=== PATIENT | male | born 1965 | race Caucasian/White ===

== ENCOUNTER 2019-03-31 09:25 | Inpatient (IN) | payer OTHER ==
[2019-03-31 10:35] VITALS: BMI 24.0
--- NOTE | 2019-03-31 12:33 | HP ---
CIWA Score Nausea/Vomitin Muscle Tremors: 3 Anxiety: 2 Agitation: 3 Paroxysmal Sweats: 1-Minimal Palms Moist Orientation: 0-Oriented Tacttile Disturbances: 1-Very Mild Itch/Numbness Auditory Disturbances: 0-None Visual Disturbances: 2-Mild Sensitivity Headache: 2-Mild CIWA-Ar Total Score: 16 - Admission Criteria [facility] Guidelines: Admission for Medically Managed Detox: Requires at least one of the followin. CIWA greater than 12 2. Seizures within the past 24 hours 3. Delirium tremens within the past 24 hours 4. Hallucinations within the past 24 hours 5. Acute intervention needed for co occurring medical disorder 6. Acute intervention needed for co occurring psychiatric disorder 7. Severe withdrawal that cannot be handled at a lower level of care (continued vomiting, continued diarrhea, abnormal vital signs) requiring intravenous medication and/or fluids 8. Admission ROS S - HPI Chief Complaint: i need help to stop drinking alcohol Allergies/Adverse Reactions: Allergies Allergy/AdvReac Type Severity Reaction Status Date / Time Fish Containing Products Allergy Severe Hives Verified 03/31/19 10:19 Penicillins Allergy Severe Hives Verified 03/31/19 10:19 History of Present Illness: thi s53 years old male with alcohol dependence seeking detox,withdrawal symptom, seen in [place] last night,mmtp 70 mgs/day,last medicated monday03/29/19. stated the bottles to take home on mon03/30/19,monday03/31/19 and 04/01 denied seizure,denied syncope nicotine dependence 1 pack/day,would like to have nicotine patch and gum weight loss longest sobriety 10 years from 1989 to 1999 depression ,insomnia plan to go back to methadone program after detox Exam Limitations: No Limitations - Ebola screening Have you traveled outside of the country in the last 21 days: No (N) Have you had contact with anyone from an Ebola affected area: No Do you have a fever: No - Review of Systems Constitutional: Loss of Appetite, Malaise, Night Sweats, Changes in sleep, Weakness, Unintentional Wgt. Loss EENT: reports: Nose Congestion Respiratory: reports: No Symptoms reported Cardiac: reports: No Symptoms Reported GI: reports: Nausea, Poor Appetite, Abdominal cramping : reports: No Symptoms Reported Musculoskeletal: reports: Back Pain, Muscle Pain Integumentary: reports: Dryness Neuro: reports: Headache, Tremors Endocrine: reports: No Symptoms Reported Hematology: reports: No Symptoms Reported Psychiatric: reports: No Sypmtoms Reported, Judgement Intact, Mood/Affect Appropiate, Orientated x3, Anxious, Depressed, other (insomnia) Other Systems: Reviewed and Negative Patient History - Patient Medical History Hx Anemia: No Hx Asthma: No Hx Chronic Obstructive Pulmonary Disease (COPD): No Hx Cardiac Disorders: No Hx Hypertension: No Hx Hypercholesterolemia: No HX Cerebrovascular Accident: No Hx Seizures: No Hx Diabetes: No Hx Gastrointestinal Disorders: No Hx Genitourinary Disorders: No Hx Sexually Transmitted Disorders: Yes (Treated for Syphilis 15 yrs ago) Hx Renal Disease (ESRD): No Hx Thyroid Disease: No Hx Human Immunodeficiency Virus (HIV): No (NEGATIVE HX last 05/17) Hx Hepatitis C: Yes (treated ) Hx Depression: Yes Hx Suicide Attempt: Yes (7Yrs ago by cutting wrist) Hx Bipolar Disorder: Yes Hx Schizophrenia: No Other Medical History: no suicidal,no homicidal - Patient Surgical History Past Surgical History: Yes Hx Neurologic Surgery: No Hx Cataract Extraction: No Hx Cardiac Surgery: No Hx Lung Surgery: No Hx Breast Surgery: No Hx Breast Biopsy: No Hx Abdominal Surgery: No Hx Appendectomy: No Hx Cholecystectomy: No Hx Genitourinary Surgery: No Hx Section: No Hx Orthopedic Surgery: Yes (SX LEFT SHOULDER DUE TO FALL IN 2003) Anesthesia Reaction: No - PPD History Previous Implant?: Yes Documented Results: Negative w/o proof Implanted On Prior [facility] Admission?: Yes Date: 05/07/15 Results: 0 mm PPD to be Administered?: No - Smoking Cessation Smoking history: Current every day smoker Have you smoked in the past 12 months: Yes Aproximately how many cigarettes per day: 10 Hx Chewing Tobacco Use: No Initiated information on smoking cessation: Yes 'Breaking Loose' booklet given: 03/31/19 - Substance & Tx. History Hx Alcohol Use: Yes Hx Substance Use: Yes Substance Use Type: Alcohol, Heroin Hx Substance Use Treatment: Yes ([facility] 05/05/15 to 05/12/15) - Substances abused Alcohol Substance route: Oral Frequency: Daily Amount used: 5 BOTTLES OF BEER, 1 QUART OF VODKA Age of first use: 12 Date of last use: 03/29/19 Heroin Substance route: Inhalation Frequency: Daily Amount used: 5-6 BAGS Age of first use: 15 Date of last use: 03/30/19 Family Disease History - Family Disease History Family Disease History: Diabetes: Father (ALCOHOL/DRUG ADDICTION), Respiratory: Mother (COPD) Admission Physical Exam [facility] - Vital Signs Vital Signs: Vital Signs - 24 hr 03/31/19 10:29 Temperature 96.9 F L Pulse Rate 50 L Respiratory 20 Rate Blood Pressure 134/81 - Physical General Appearance: Yes: Moderate Distress, Tremorous, Irritable, Sweating, Anxious HEENTM: Yes: Normal ENT Inspection, B[place], Pharynx Normal Respiratory: Yes: Lungs Clear, Normal Breath Sounds, No Respiratory Distress Neck: Yes: Within Normal Limits, No masses,lesions,Nodules, Supple Breast: Yes: Within Normal Limits Cardiology: Yes: Within Normal Limits, Regular Rhythm, S1, S2, Tachycardia Abdominal: Yes: Within Normal Limits, Normal Bowel Sounds, Non Tender, Flat, Soft Genitourinary: Yes: Within Normal Limits Back: Yes: Muscle Spasm Extremities: Yes: Within Normal Limits, Normal Range of Motion, Tremors Neurological: Yes: 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 II-XII NML intact, Fully Oriented, Alert, Motor Strength 5/5 Integumentary: Yes: Dry, Other (varicose veins both legs) Lymphatic: Yes: Within Normal Limits - Diagnostic (1) Alcohol dependence with uncomplicated withdrawal Current Visit: Yes Status: Acute (2) Heroin abuse Current Visit: Yes Status: Acute (3) Methadone maintenance therapy patient Current Visit: Yes Status: Acute (4) Dehydration Current Visit: Yes Status: Acute (5) Nicotine dependence Current Visit: Yes Status: Chronic (6) Bipolar disorder Current Visit: Yes Status: Acute (7) Varicose vein of leg Current Visit: Yes Status: Acute Cleared for Admission [facility] - Detox or Rehab [facility] Level of Care: Medically Managed Detox Regimen/Protocol: Librium Inpatient Rehab Admission - Rehab Decision to Admit Inpatient rehab admission?: No
[2019-03-31] MEDS ORDERED: NICOTINE POLACRILEX 2 MG GUM BUC PRN (12:47)
[2019-03-31] MEDS ORDERED: MENTHOL/PHENOL 1 EACH UD MM PRN (12:47)
[2019-03-31] MEDS ORDERED: ACETAMINOPHEN 325 MG TABLET (FP) PO PRN ×2 (12:47)
[2019-03-31] MEDS ORDERED: chlordiazePOXIDE HCL 25 MG CAPSULE PO PRN (12:47)
[2019-03-31] MEDS ORDERED: MAG HYDROX/AL HYDROX/SIMETH 30 ML UNIT-DOSE CUP PO PRN (12:47)
[2019-03-31] MEDS ORDERED: MAGNESIUM HYDROX 2400MG/30ML ORAL SUSPENSION 30 ML CUP PO PRN (12:47)
[2019-03-31] MEDS ORDERED: METHOCARBAMOL 500 MG TABLET PO PRN (12:47)
[2019-03-31] MEDS ORDERED: MAGNESIUM CITRATE 300 ML BOTTLE PO PRN (12:47)
[2019-03-31] MEDS ORDERED: BISMUTH SUBSALICYLATE 524 MG/30 ML UD PO PRN (12:47)
[2019-03-31] MEDS ORDERED: IBUPROFEN 400 MG TABLET (FP) PO PRN (12:47)
[2019-03-31] MEDS ORDERED: hydrOXYzine PAMOATE 25 MG CAPSULE (FP) PO PRN (12:47)
[2019-03-31] MEDS ORDERED: METHADONE HCL 10 MG TABLET PO ONE (13:45)
[2019-03-31] MEDS: NICOTINE 21 MG/24 HOURS TOPICAL PATCH TD SCH (14:06)
[2019-03-31] MEDS: chlordiazePOXIDE HCL 25 MG CAPSULE PO SCH ×2 (17:40→22:47)
[2019-03-31] MEDS: THIAMINE HCL 100 MG TABLET (FP) PO SCH (22:47)
[2019-04-01] MEDS ORDERED: METHADONE HCL 10 MG TABLET PO ONE (06:00)
[2019-04-01] MEDS: chlordiazePOXIDE HCL 25 MG CAPSULE PO SCH ×4 (06:41→21:59)
[2019-04-01 09:51] LABS: HEMATOCRIT 43.7 % (35.4-49); HEMOGLOBIN 15.1 GM/dL (11.7-16.9); MCH 31.1 pg (25.7-33.7); MCHC 34.5 g/dl (32.0-35.9); MEAN CELL VOLUME 90.4 fl (80-96); MEAN PLT VOLUME 8.3 fl (7.5-11.1); PLATELET COUNT 266 K/MM3 (134-434); RBC 4.83 M/mm3 (4.00-5.60); RDW 13.2 % (11.9-15.9); WHITE BLOOD COUNT 19.3 K/mm3 (4.0-10.0)
[2019-04-01 09:54] LABS: ALBUMIN 3.7 g/dl (3.4-5.0); BILIRUBIN,TOTAL 0.8 mg/dL (0.2-1); BLOOD UREA NITROGEN 18.1 mg/dL (7-18); CALCIUM 9.1 mg/dL (8.5-10.1); CREATININE 0.9 mg/dL (0.55-1.3); POTASSIUM 3.8 mmol/L (3.5-5.1); TOT PROT 7.3 g/dl (6.4-8.2)
[2019-04-01] MEDS: PRENATAL VITAMINS W/ FOLIC ACID TABLET (FP) PO SCH (10:18)
[2019-04-01] MEDS: NICOTINE 21 MG/24 HOURS TOPICAL PATCH TD SCH (10:18)
[2019-04-01 10:20] LABS: SICKLE CELL SCREEN NEGATIVE (NEGATIVE)
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
--- NOTE | 2019-04-01 10:35 | PN ---
S CIWA - CIWA Score Nausea/Vomitin-Mild Nausea/No Vomiting Muscle Tremors: 4-Moderate,w/Arms Extend Anxiety: 3 Agitation: 3 Paroxysmal Sweats: 2 Orientation: 0-Oriented Tacttile Disturbances: 1-Very Mild Itch/Numbness Auditory Disturbances: 0-None Visual Disturbances: 0-None Headache: 1-Very Mild CIWA-Ar Total Score: 15 S Progress Note (SOAP) Subjective: 53 years old male 1st patient [facility] admission since 2014 was admitted on 03/31/19 for alcohol withdrawal sx management doing well with librum detox regimen taking methadone 70 mg without prove of bottle verification nor phone call available patient received 20 mg of methadone today exhibiting tremor and body aches and muscle spasms Objective: 04/01/19 10:37 Vital Signs Temperature 98.5 F 04/01/19 09:04 Pulse Rate 66 04/01/19 09:04 Respiratory Rate 18 04/01/19 09:04 Blood Pressure 98/57 L 04/01/19 09:04 O2 Sat by Pulse Oximetry (%) Laboratory Last Values WBC 19.3 K/mm3 (4.0-10.0) H 04/01/19 07:30 RBC 4.83 M/mm3 (4.00-5.60) 04/01/19 07:30 Hgb 15.1 GM/dL (11.7-16.9) 04/01/19 07:30 Hct 43.7 % (35.4-49) 04/01/19 07:30 MCV 90.4 fl (80-96) 04/01/19 07:30 MCH 31.1 pg (25.7-33.7) 04/01/19 07:30 MCHC 34.5 g/dl (32.0-35.9) 04/01/19 07:30 RDW 13.2 % (11.9-15.9) 04/01/19 07:30 Plt Count 266 K/MM3 (134-434) 04/01/19 07:30 MPV 8.3 fl (7.5-11.1) D 04/01/19 07:30 Sickle Cell Screen Negative (NEGATIVE) 04/01/19 07:30 Sodium 141 mmol/L (136-145) 04/01/19 07:30 Potassium 3.8 mmol/L (3.5-5.1) 04/01/19 07:30 Chloride 104 mmol/L (98-107) 04/01/19 07:30 Carbon Dioxide 30 mmol/L (21-32) 04/01/19 07:30 Anion Gap 8 MMOL/L (8-16) 04/01/19 07:30 BUN 18.1 mg/dL (7-18) H 04/01/19 07:30 Creatinine 0.9 mg/dL (0.55-1.3) 04/01/19 07:30 Est GFR (CKD-EPI)AfAm 112.62 04/01/19 07:30 Est GFR (CKD-EPI)NonAf 97.17 04/01/19 07:30 Random Glucose 90 mg/dL (74-106) 04/01/19 07:30 Calcium 9.1 mg/dL (8.5-10.1) 04/01/19 07:30 Total Bilirubin 0.8 mg/dL (0.2-1) 04/01/19 07:30 AST 26 U/L (15-37) 04/01/19 07:30 ALT 21 U/L (13-61) 04/01/19 07:30 Alkaline Phosphatase 130 U/L (45-117) H 04/01/19 07:30 Total Protein 7.3 g/dl (6.4-8.2) 04/01/19 07:30 Albumin 3.7 g/dl (3.4-5.0) 04/01/19 07:30 lab noted 04/01/19 10:38 encourage oral fluid repeat cbc 04/01/19 10:40 Assessment: 04/01/19 10:38 alcohol withdrawal sx 04/01/19 10:39 no coughing no trouble of urination no diarrhea Plan: continue librium detox regimen
--- NOTE | 2019-04-01 13:40 | PN ---
S Progress Note Note: unwitnessed fall observed patient lying on bed alert speech clearly reporting that feeling weak fell on the floor when up from a chair, left based of occipital bump to the chair occipital scalp intact no redness no swell none tender neck full range of motion c/o headache encourage tylenal or motrin for pain denies nausea no vomiting denies dizziness but weakness of general body observed patient walk out from his room to the day room steady gait encourage oral fluid continue monitoring point of occipital "bumping to chair"
[2019-04-01] MEDS: THIAMINE HCL 100 MG TABLET (FP) PO SCH (21:59)
[2019-04-01] MEDS: MELATONIN 5 MG TABLETS PO PRN (22:00)
[2019-04-02] MEDS: chlordiazePOXIDE HCL 25 MG CAPSULE PO SCH ×4 (06:03→22:00)
[2019-04-02] MEDS ORDERED: METHADONE HCL 10 MG TABLET PO SCH (07:30)
[2019-04-02] MEDS ORDERED: METHADONE HCL 40 MG DISPERSABLE TABLET ONE (07:38)
[2019-04-02] MEDS ORDERED: METHADONE HCL 10 MG TABLET ONE (07:38)
[2019-04-02] MEDS: METHADONE 40 MG, METHADONE 20 MG PO SCH (07:44)
[2019-04-02] MEDS: NICOTINE 21 MG/24 HOURS TOPICAL PATCH TD SCH (09:59)
[2019-04-02] MEDS: PRENATAL VITAMINS W/ FOLIC ACID TABLET (FP) PO SCH (09:59)
--- NOTE | 2019-04-02 11:32 | PN ---
[facility] CIWA - CIWA Score Nausea/Vomitin-No Nausea/No Vomiting Muscle Tremors: 2 Anxiety: 3 Agitation: 3 Paroxysmal Sweats: 1-Minimal Palms Moist Orientation: 0-Oriented Tacttile Disturbances: 1-Very Mild Itch/Numbness Auditory Disturbances: 0-None Visual Disturbances: 0-None Headache: 0-None Present CIWA-Ar Total Score: 10 S Progress Note (SOAP) Subjective: 53 years old male 1st patient [facility] admission since 2014 was admitted on 03/31/19 for acute alcohol withdrawal sx management doing well with libirum detox regmen begin methadone 60 mg po today tolerate well patient requests housing application and residential upon discharged from detox Objective: 04/02/19 11:34 Vital Signs Temperature 97.9 F 04/02/19 09:02 Pulse Rate 57 L 04/02/19 09:02 Respiratory Rate 18 04/02/19 09:02 Blood Pressure 106/69 04/02/19 09:02 O2 Sat by Pulse Oximetry (%) Laboratory Last Values WBC 19.3 K/mm3 (4.0-10.0) H 04/01/19 07:30 RBC 4.83 M/mm3 (4.00-5.60) 04/01/19 07:30 Hgb 15.1 GM/dL (11.7-16.9) 04/01/19 07:30 Hct 43.7 % (35.4-49) 04/01/19 07:30 MCV 90.4 fl (80-96) 04/01/19 07:30 MCH 31.1 pg (25.7-33.7) 04/01/19 07:30 MCHC 34.5 g/dl (32.0-35.9) 04/01/19 07:30 RDW 13.2 % (11.9-15.9) 04/01/19 07:30 Plt Count 266 K/MM3 (134-434) 04/01/19 07:30 MPV 8.3 fl (7.5-11.1) D 04/01/19 07:30 Sickle Cell Screen Negative (NEGATIVE) 04/01/19 07:30 Sodium 141 mmol/L (136-145) 04/01/19 07:30 Potassium 3.8 mmol/L (3.5-5.1) 04/01/19 07:30 Chloride 104 mmol/L (98-107) 04/01/19 07:30 Carbon Dioxide 30 mmol/L (21-32) 04/01/19 07:30 Anion Gap 8 MMOL/L (8-16) 04/01/19 07:30 BUN 18.1 mg/dL (7-18) H 04/01/19 07:30 Creatinine 0.9 mg/dL (0.55-1.3) 04/01/19 07:30 Est GFR (CKD-EPI)AfAm 112.62 04/01/19 07:30 Est GFR (CKD-EPI)NonAf 97.17 04/01/19 07:30 Random Glucose 90 mg/dL (74-106) 04/01/19 07:30 Calcium 9.1 mg/dL (8.5-10.1) 04/01/19 07:30 Total Bilirubin 0.8 mg/dL (0.2-1) 04/01/19 07:30 AST 26 U/L (15-37) 04/01/19 07:30 ALT 21 U/L (13-61) 04/01/19 07:30 Alkaline Phosphatase 130 U/L (45-117) H 04/01/19 07:30 Total Protein 7.3 g/dl (6.4-8.2) 04/01/19 07:30 Albumin 3.7 g/dl (3.4-5.0) 04/01/19 07:30 RPR Titer Nonreactive (NONREACTIVE) 04/01/19 07:30 04/02/19 11:35 lab noted asymptomatic wbc elevation repeat cbc 04/03/19 Assessment: 04/02/19 11:35 alcohol withdrawal sx Plan: continue librium detox regimen methadone 60 mg po daily
[2019-04-02] MEDS: THIAMINE HCL 100 MG TABLET (FP) PO SCH (22:00)
[2019-04-02] MEDS: MELATONIN 5 MG TABLETS PO PRN (22:00)
[2019-04-03] MEDS ORDERED: chlordiazePOXIDE HCL 10 MG CAPSULE PO PRN
[2019-04-03] MEDS ORDERED: METHADONE HCL 40 MG DISPERSABLE TABLET ONE (04:41)
[2019-04-03] MEDS ORDERED: METHADONE HCL 10 MG TABLET ONE (04:41)
[2019-04-03] MEDS: chlordiazePOXIDE HCL 10 MG CAPSULE PO SCH ×4 (05:16→22:06)
[2019-04-03] MEDS: METHADONE 40 MG, METHADONE 20 MG PO SCH (05:16)
[2019-04-03] MEDS: PRENATAL VITAMINS W/ FOLIC ACID TABLET (FP) PO SCH (10:06)
[2019-04-03] MEDS: NICOTINE 21 MG/24 HOURS TOPICAL PATCH TD SCH (10:06)
[2019-04-03 12:25] LABS: HEMATOCRIT 36.8 % (35.4-49); HEMOGLOBIN 12.6 GM/dL (11.7-16.9); MCH 31.3 pg (25.7-33.7); MCHC 34.4 g/dl (32.0-35.9); MEAN CELL VOLUME 91.1 fl (80-96); MEAN PLT VOLUME 8.2 fl (7.5-11.1); PLATELET COUNT 210 K/MM3 (134-434); RBC 4.04 M/mm3 (4.00-5.60); RDW 13.3 % (11.9-15.9); WHITE BLOOD COUNT 8.3 K/mm3 (4.0-10.0)
--- NOTE | 2019-04-03 13:58 | PN ---
S CIWA - CIWA Score Nausea/Vomitin-No Nausea/No Vomiting Muscle Tremors: 2 Anxiety: 2 Agitation: 2 Paroxysmal Sweats: No Perspiration Orientation: 0-Oriented Tacttile Disturbances: 0-None Auditory Disturbances: 0-None Visual Disturbances: 0-None Headache: 0-None Present CIWA-Ar Total Score: 6 B[facility] Progress Note (SOAP) Subjective: doing well with libirum detox regimen late entry patient reported fell and bump head on chair refused to ER for head CT later patient withdrawal statement and reported that he fell on sleep and head pump on table today patient is alert oriented x [address] steady gait continue request housing application less irritable better self control Objective: 04/03/19 14:00 Vital Signs Temperature 97.3 F L 04/03/19 13:15 Pulse Rate 52 L 04/03/19 13:15 Respiratory Rate 18 04/03/19 13:15 Blood Pressure 93/57 L 04/03/19 13:15 O2 Sat by Pulse Oximetry (%) Laboratory Last Values WBC 8.3 K/mm3 (4.0-10.0) 04/03/19 08:30 RBC 4.04 M/mm3 (4.00-5.60) 04/03/19 08:30 Hgb 12.6 GM/dL (11.7-16.9) 04/03/19 08:30 Hct 36.8 % (35.4-49) D 04/03/19 08:30 MCV 91.1 fl (80-96) 04/03/19 08:30 MCH 31.3 pg (25.7-33.7) 04/03/19 08:30 MCHC 34.4 g/dl (32.0-35.9) 04/03/19 08:30 RDW 13.3 % (11.9-15.9) 04/03/19 08:30 Plt Count 210 K/MM3 (134-434) D 04/03/19 08:30 MPV 8.2 fl (7.5-11.1) 04/03/19 08:30 Sickle Cell Screen Negative (NEGATIVE) 04/01/19 07:30 Sodium 141 mmol/L (136-145) 04/01/19 07:30 Potassium 3.8 mmol/L (3.5-5.1) 04/01/19 07:30 Chloride 104 mmol/L (98-107) 04/01/19 07:30 Carbon Dioxide 30 mmol/L (21-32) 04/01/19 07:30 Anion Gap 8 MMOL/L (8-16) 04/01/19 07:30 BUN 18.1 mg/dL (7-18) H 04/01/19 07:30 Creatinine 0.9 mg/dL (0.55-1.3) 04/01/19 07:30 Est GFR (CKD-EPI)AfAm 112.62 04/01/19 07:30 Est GFR (CKD-EPI)NonAf 97.17 04/01/19 07:30 Random Glucose 90 mg/dL (74-106) 04/01/19 07:30 Calcium 9.1 mg/dL (8.5-10.1) 04/01/19 07:30 Total Bilirubin 0.8 mg/dL (0.2-1) 04/01/19 07:30 AST 26 U/L (15-37) 04/01/19 07:30 ALT 21 U/L (13-61) 04/01/19 07:30 Alkaline Phosphatase 130 U/L (45-117) H 04/01/19 07:30 Total Protein 7.3 g/dl (6.4-8.2) 04/01/19 07:30 Albumin 3.7 g/dl (3.4-5.0) 04/01/19 07:30 RPR Titer Nonreactive (NONREACTIVE) 04/01/19 07:30 lab noted Assessment: 04/03/19 14:00 alcohol withdrawal sx Plan: continue librium detox regimen
[2019-04-03] MEDS: MELATONIN 5 MG TABLETS PO PRN (22:06)
[2019-04-03] MEDS: THIAMINE HCL 100 MG TABLET (FP) PO SCH (22:06)
[2019-04-04] MEDS ORDERED: METHADONE HCL 10 MG TABLET ONE (03:53)
[2019-04-04] MEDS ORDERED: METHADONE HCL 40 MG DISPERSABLE TABLET ONE (03:53)
[2019-04-04] MEDS: METHADONE 40 MG, METHADONE 20 MG PO SCH (05:41)
[2019-04-04] MEDS: chlordiazePOXIDE HCL 10 MG CAPSULE PO SCH ×2 (05:41→17:05)
[2019-04-04] MEDS: PRENATAL VITAMINS W/ FOLIC ACID TABLET (FP) PO SCH (10:10)
[2019-04-04] MEDS: NICOTINE 21 MG/24 HOURS TOPICAL PATCH TD SCH (10:10)
--- NOTE | 2019-04-04 17:10 | PN ---
S CIWA - CIWA Score Nausea/Vomitin-No Nausea/No Vomiting Muscle Tremors: None Anxiety: 2 Agitation: 2 Paroxysmal Sweats: No Perspiration Orientation: 2-Disoriented Date<2 days Tacttile Disturbances: 0-None Auditory Disturbances: 0-None Visual Disturbances: 0-None Headache: 0-None Present CIWA-Ar Total Score: 6 BHS Progress Note (SOAP) Subjective: Body Aches, Anxious. Objective: PATIENT A & O X 2 (UNCERTAIN ABOUT CURRENT DAY / DATE). PATIENT OBSERVED AMBULATING ON UNIT UNASSISTED. IN NO ACUTE DISTRESS. 04/04/19 17:07 Vital Signs Temperature 97.8 F 04/04/19 13:47 Pulse Rate 59 L 04/04/19 13:47 Respiratory Rate 18 04/04/19 13:47 Blood Pressure 96/63 04/04/19 13:47 O2 Sat by Pulse Oximetry (%) Laboratory Tests 04/01/19 04/01/19 04/01/19 07:30 07:30 07:30 WBC 19.3 H RBC 4.83 Hgb 15.1 Hct 43.7 MCV 90.4 MCH 31.1 MCHC 34.5 RDW 13.2 Plt Count 266 MPV 8.3 D Sickle Cell Screen Negative Sodium 141 Potassium 3.8 Chloride 104 Carbon Dioxide 30 Anion Gap 8 BUN 18.1 H Creatinine 0.9 Est GFR (CKD-EPI)AfAm 112.62 Est GFR (CKD-EPI)NonAf 97.17 Random Glucose 90 Calcium 9.1 Total Bilirubin 0.8 AST 26 ALT 21 Alkaline Phosphatase 130 H Total Protein 7.3 Albumin 3.7 RPR Titer Nonreactive TB (QFT) Incubation TB Test (QFT) Nil TB Test (QFT) Mitogen TB Test (QFT) Antigen TB Test (QFT) TB Positive Criteria 04/01/19 04/03/19 07:30 08:30 WBC 8.3 RBC 4.04 Hgb 12.6 Hct 36.8 D MCV 91.1 MCH 31.3 MCHC 34.4 RDW 13.3 Plt Count 210 D MPV 8.2 Sickle Cell Screen Sodium Potassium Chloride Carbon Dioxide Anion Gap BUN Creatinine Est GFR (CKD-EPI)AfAm Est GFR (CKD-EPI)NonAf Random Glucose Calcium Total Bilirubin AST ALT Alkaline Phosphatase Total Protein Albumin RPR Titer TB (QFT) Incubation TB Test (QFT) Nil 0.14 TB Test (QFT) Mitogen 0.15 TB Test (QFT) Antigen 0.14 TB Test (QFT) Indeterminate H TB Positive Criteria LABS NOTED. RESULT OF REPEAT CBC LEVEL NOTED. WBC LEVEL NOTED TO BE WITHIN NORMAL RANGE ON REPEAT CBC ASSESSMENT. 04/04/19 17:09 Assessment: 04/04/19 17:07 WITHDRAWAL SYMPTOMS. ELEVATED ALKALINE PHOSPHATASE LEVEL. 04/04/19 17:07 Plan: CONTINUE DETOX. CXR ORDERED FOR TOMORROW FOR 'INDTERMINATE' QFT /TB RESULT NOTED FROM DETOX ADMISSION LABORATORY ASSESSMENT.
[2019-04-04] MEDS: MELATONIN 5 MG TABLETS PO PRN (21:49)
[2019-04-04] MEDS: THIAMINE HCL 100 MG TABLET (FP) PO SCH (21:49)
[2019-04-05] MEDS ORDERED: METHADONE HCL 10 MG TABLET ONE (04:53)
[2019-04-05] MEDS ORDERED: METHADONE HCL 40 MG DISPERSABLE TABLET ONE (04:54)
[2019-04-05] MEDS ORDERED: chlordiazePOXIDE HCL 10 MG CAPSULE PO ONE (05:00)
[2019-04-05] MEDS: METHADONE 40 MG, METHADONE 20 MG PO SCH (05:09)
[2019-04-05 09:01] VITALS: BP 108/78; PULSE 76; TEMP 98.4
[2019-04-05] MEDS: NICOTINE 21 MG/24 HOURS TOPICAL PATCH TD SCH (09:25)
[2019-04-05] MEDS: PRENATAL VITAMINS W/ FOLIC ACID TABLET (FP) PO SCH (09:26)
--- NOTE | 2019-04-05 16:57 | DS ---
[facility] Detox Discharge Summary Admission Date: 03/31/19 Discharge Date: 04/05/19 - History Present History: Alcohol Dependence Additional Comments: PATIENT RETURNING TO [facility] M.M.T.P. /OUTPATIENT PROGRAM, WHERE HE IS CURRENTLY A CLIENT, FOR AFTERCARE. NOTE: PATIENT WAS ADVISED TO REMAIN ON DETOX UNIT TO HAVE CXR DONE (FOR 'INDETERMINATE' RESULT NOTED ON DETOX ADMISSION QFT /TB LABORATORY TEST). HOWEVER, PATIENT DECLINED TO DO SO, NOTING THAT HE NEEDED TO LEAVE IMMEDIATELY AT THIS TIME BECAUSE HE HAD PERSONAL MATTERS TO ATTEND TO. 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 KUMAR, [place], [place]) SOON POSSIBLE FOR FURTHER MEDICAL EVALUATION OF QFT / TB LAB RESULT NOTED WHILE ADMITTED FOR DETOX. PATIENT DENIES ANY RECENT HISTORY OF COUGH, CHEST PAIN, AND NIGHT SWEATS. COPIES OF RESULTS OF ALL LABS DRAWN WHILE ADMITTED FOR DETOX GIVEN TO PATIENT AT TIME OF DISCHARGE FROM DETOX UNIT. Pertinent Past History: Hep C, Depression, Bipolar Disorder, Nicotine Dependence, Varicose Veins Of Bilateral Legs, M.M.T.P., Insomnia, P.T.S.D. - Physical Exam Results Vital Signs: Vital Signs Temperature 98.4 F 04/05/19 09:00 Pulse Rate 76 04/05/19 09:00 Respiratory Rate 18 04/05/19 09:00 Blood Pressure 108/78 04/05/19 09:00 O2 Sat by Pulse Oximetry (%) Pertinent Admission Physical Exam Findings: WITHDRAWAL SYMPTOMS. Laboratory Tests 04/01/19 04/01/19 04/01/19 07:30 07:30 07:30 WBC 19.3 H RBC 4.83 Hgb 15.1 Hct 43.7 MCV 90.4 MCH 31.1 MCHC 34.5 RDW 13.2 Plt Count 266 MPV 8.3 D Sickle Cell Screen Negative Sodium 141 Potassium 3.8 Chloride 104 Carbon Dioxide 30 Anion Gap 8 BUN 18.1 H Creatinine 0.9 Est GFR (CKD-EPI)AfAm 112.62 Est GFR (CKD-EPI)NonAf 97.17 Random Glucose 90 Calcium 9.1 Total Bilirubin 0.8 AST 26 ALT 21 Alkaline Phosphatase 130 H Total Protein 7.3 Albumin 3.7 RPR Titer Nonreactive TB (QFT) Incubation TB Test (QFT) Nil TB Test (QFT) Mitogen TB Test (QFT) Antigen TB Test (QFT) TB Positive Criteria 04/01/19 04/03/19 07:30 08:30 WBC 8.3 RBC 4.04 Hgb 12.6 Hct 36.8 D MCV 91.1 MCH 31.3 MCHC 34.4 RDW 13.3 Plt Count 210 D MPV 8.2 Sickle Cell Screen Sodium Potassium Chloride Carbon Dioxide Anion Gap BUN Creatinine Est GFR (CKD-EPI)AfAm Est GFR (CKD-EPI)NonAf Random Glucose Calcium Total Bilirubin AST ALT Alkaline Phosphatase Total Protein Albumin RPR Titer TB (QFT) Incubation TB Test (QFT) Nil 0.14 TB Test (QFT) Mitogen 0.15 TB Test (QFT) Antigen 0.14 TB Test (QFT) Indeterminate H TB Positive Criteria LABS NOTED - Treatment Hospital Course: Detox Protocol Followed, Detoxed Safely, Responded well, Discharged Condition Good Patient has Accepted a Rehab Referral to: PT. RETURNING TO PREVIOUS [facility] MMTP/OP PROGRAM. - Medication Discharge Medications: Ambulatory Orders Mirtazapine [Remeron -] 30 mg PO HS #30 05/12/15 Sertraline HCl [Zoloft -] 50 mg PO DAILY 03/31/19 - Diagnosis (1) Alcohol dependence with uncomplicated withdrawal Status: Acute (2) Bipolar disorder Status: Acute Qualifiers: Active/Remission status: remission status unspecified Qualified Code(s): F31.9 - Bipolar disorder, unspecified (3) Dehydration Status: Acute (4) Heroin abuse Status: Acute (5) Methadone maintenance therapy patient Status: Acute (6) Varicose vein of leg Status: Chronic Qualifiers: Varicose vein complication: unspecified Laterality: bilateral Qualified Code(s): I83.93 - Asymptomatic varicose veins of bilateral lower extremities (7) Post traumatic stress disorder (PTSD) Status: Acute (8) Substance induced mood disorder Status: Acute (9) Substance-induced psychotic disorder with hallucinations Status: Acute (10) Substance-induced sleep disorder Status: Acute (11) PTSD (post-traumatic stress disorder) Status: Chronic (12) Hepatitis C Status: Resolved Qualifiers: Viral hepatitis chronicity: chronic Hepatic coma status: without hepatic coma Qualified Code(s): B18.2 - Chronic viral hepatitis C (13) Bipolar disorder Status: Ruled-out Qualifiers: Active/Remission status: remission status unspecified Qualified Code(s): F31.9 - Bipolar disorder, unspecified - AMA Did Patient Leave Against Medical Advice: No BHS CIWA - CIWA Score Nausea/Vomitin-No Nausea/No Vomiting Muscle Tremors: None Anxiety: 0-No Anxiety, at Ease Agitation: 2 Paroxysmal Sweats: No Perspiration Orientation: 0-Oriented Tacttile Disturbances: 1-Very Mild Itch/Numbness Auditory Disturbances: 0-None Visual Disturbances: 0-None Headache: 0-None Present CIWA-Ar Total Score: 3
== END 2019-04-05 09:05 | disposition home or self-care (01) | DRG 773 ==
LOC: YASAS 09:25 → Y3N 13:35
PROVIDERS: ADMIT Surgery; ATTEND Surgery
PROC: HZ2ZZZZ Detoxification Services for Substance Abuse Treatment (ICD-10-PCS; principal; 2019-03-31)
DX: F10.230 Alcohol dependence with withdrawal, uncomplicated (principal); F11.20 Opioid dependence, uncomplicated; F17.210 Nicotine dependence, cigarettes, uncomplicated; F19.24 Other psychoactive substance dependence with psychoactive substance-induced mood disorder; F19.282 Other psychoactive substance dependence with psychoactive substance-induced sleep disorder; F19.251 Other psychoactive substance dependence with psychoactive substance-induced psychotic disorder with hallucinations; F31.9 Bipolar disorder, unspecified; F43.10 Post-traumatic stress disorder, unspecified; E86.0 Dehydration; I83.93 Asymptomatic varicose veins of bilateral lower extremities; B18.2 Chronic viral hepatitis C; R51 Headache; W01.190A Fall on same level from slipping, tripping and stumbling with subsequent striking against furniture, initial encounter; Y93.89 Activity, other specified; Y92.238 Other place in hospital as the place of occurrence of the external cause; Y99.8 Other external cause status; Z88.0 Allergy status to penicillin; Z91.013 Allergy to seafood; Z91.5 Personal history of self-harm
CPT/HCPCS: 36415; 80053; 85027; 85660; 86480; 86593

== ENCOUNTER 2019-04-10 10:42 | Inpatient (IN) | payer OTHER | END 2019-04-15 14:03 | disposition other institution (70) | LOC: YASAS 10:42 → Y3N 14:29 ==

== ENCOUNTER 2019-04-15 14:08 | Inpatient (IN) | payer OTHER ==
[2019-04-15] MEDS ORDERED: MAG HYDROX/AL HYDROX/SIMETH 30 ML UNIT-DOSE CUP PO PRN (15:17)
[2019-04-15] MEDS ORDERED: MAGNESIUM CITRATE 300 ML BOTTLE PO PRN (15:17)
[2019-04-15] MEDS ORDERED: P-EPHED 60MG/TRIPROLIDI 2.5MG TABLET PO PRN (15:17)
[2019-04-15] MEDS ORDERED: NICOTINE POLACRILEX 2 MG GUM BC PRN (15:17)
[2019-04-15] MEDS ORDERED: LOPERAMIDE HCL 2 MG CAPSULE PO PRN (15:17)
[2019-04-15] MEDS ORDERED: ACETAMINOPHEN 325 MG TABLET (FP) PO PRN (15:17)
[2019-04-15] MEDS ORDERED: MAGNESIUM HYDROX 2400MG/30ML ORAL SUSPENSION 30 ML CUP PO PRN (15:17)
[2019-04-15] MEDS ORDERED: IBUPROFEN 400 MG TABLET (FP) PO PRN (15:17)
[2019-04-15] MEDS ORDERED: MENTHOL/PHENOL 1 EACH UD MM PRN (15:17)
[2019-04-15] MEDS ORDERED: guaiFENesin 200 MG/10 ML 10 ML UNIT-DOSE CUPS PO PRN (15:17)
--- NOTE | 2019-04-15 15:17 | HP ---
[facility] Rehab Assess/Revision - Admission History Admitted to Rehab from: [facility] Date of Admission to Rehab: 04/15/19 - Findings Detox History & Physical reviewed: Yes Concur with findings: Yes Comments/Additional Findings: tranferred from detox to rehab admission as per protocol Inpatient Rehab Admission - Rehab Decision to Admit Inpatient rehab admission?: Yes - Initial Determination Are CD services needed?: Yes Free of communicable disease: Yes Not in need of hospitalization: Yes - Rehab Admission Criteria Previous failed treatment: Yes Poor recovery environment: Yes Comorbidities: Yes Lacks judgement: Yes Patient is meeting Inpatient Rehab admission criteria:: Yes
[2019-04-15] MEDS ORDERED: ALBUTEROL SO4 8 GM HFA INHALER IH PRN (15:22)
[2019-04-15] MEDS ORDERED: LOPERAMIDE HCL 2 MG CAPSULE PO ONE (17:00)
[2019-04-15] MEDS ORDERED: DICYCLOMINE HCL 10 MG CAPSULE PO ONE (17:00)
[2019-04-15] MEDS: traZODone HCL 100 MG TABLET (FP) PO SCH (21:05)
[2019-04-15] MEDS: THIAMINE HCL 100 MG TABLET (FP) PO SCH (21:05)
[2019-04-16] MEDS ORDERED: METHADONE HCL 10 MG TABLET PO ONE (08:57)
[2019-04-16] MEDS ORDERED: METHADONE 40 MG, METHADONE 20 MG PO ONE (09:15)
[2019-04-16] MEDS ORDERED: METHADONE HCL 40 MG DISPERSABLE TABLET ONE (09:20)
[2019-04-16] MEDS ORDERED: METHADONE HCL 10 MG TABLET ONE (09:20)
[2019-04-16] MEDS: NICOTINE 14 MG/24 HOURS TOPICAL PATCH TD SCH (09:22)
[2019-04-16] MEDS: PRENATAL VITAMINS W/ FOLIC ACID TABLET (FP) PO SCH (09:22)
--- NOTE | 2019-04-16 10:50 | PN ---
[facility] Progress Note Note: Pt c/o persistent uncontrollable watery diarrhea "while I was in detox and it has not stopped". Reports associated stomach cramps. Reports Imodium not effective. Pt was admitted to [facility] last evening from [facility]. Pt reports detoxed from alcohol but still uses heroin on/off and pcp. Pt is on [facility] with Methadone 60 mg po daily. Pt also c/o facial rash and uses hydrocortisone cream 1% TP. Vital Signs - 24 hr 04/15/19 04/16/19 15:49 03:30 Temperature 97.6 F Pulse Rate 61 Respiratory 14 18 Rate Blood Pressure 85/54 L Alert o x 3 oob ambulating with cane with steady gait. Cardiac:s1 s2, HR 61 Lungs:cta, abimael. Abdomen:soft,+bs-all quads,nt,flat Skin:dry, slight dry and scaly rash-face A/P Acute Gastroenteritis chronic dermatitis D/w pt will change to BRAT Diet Increase po fluids as tolerated-tea with no milk No diary products/OJ till resolved Lomotil x 1 dose now Re-evaluate pt and manage as necessary Hydrocortisone cream 1% apply to facial rash as directed.
--- NOTE | 2019-04-16 11:02 | PN ---
[facility] Progress Note Note: The nurse, Ms Kriss Rain reported to this auto service writer that this patient reported to her that he "fell on his left side butt". Saw pt this morning and he reported "fall on left butt and left shoulder. Left side". Reports pain on left lower back pain rated 6/10. Pt uses cane for ambulation and states he forgot to take his cane with him as he was going to the bathroom last night when he fell. Also reports he was dizzy last night when it happened. Pt currently denies any dizziness and ambulating with steady gait with cane. However, pt also states chronic left knee pain s/p arthroscopic knee surgery in the past. Vital Signs - 24 hr 04/15/19 04/16/19 04/16/19 15:49 03:30 08:00 Temperature 97.6 F 97.5 F L Pulse Rate 61 66 Respiratory 14 18 18 Rate Blood Pressure 85/54 L 90/65 04/16/19 10:00 Temperature 98 F Pulse Rate 60 Respiratory 14 Rate Blood Pressure 88/62 L Exam: Alert o x 3 nad oob ambulating with cane. Cardiac:s1 s2, HR 61 Lungs:cta, abimael. Abdomen:soft,+bs-all quads,nt,flat Extremities/Skin:No edema,Full ROM with slight limited ROM to left knee(s/p arthroscopic sx); skin intact, no redness or swelling to left shoulder or left lower back. A/P Fall [facility] [place] to affected areas as directed. Fall risk precaution fall protocol#1 initiated(not witnessed, per staff). D/w pt and informed pt will go for ctscan of head but patient declined test stating "i did not hit my head,Im not going". Pt signed a refusal form in his chart.
[2019-04-16] MEDS ORDERED: DIPHENOXYLATE 2.5/ATROPINE.025 1 COMBO TABLET PO ONE (12:30)
[2019-04-16] MEDS: HYDROCORTISONE 1% TOPICAL CREAM 30 GM TUBE TP SCH ×2 (12:31→21:04)
[2019-04-16] MEDS: METHYL SALICYLATE/MENTHOL OINT 30 GM TUBE TP SCH ×2 (14:19→21:05)
[2019-04-16] MEDS: THIAMINE HCL 100 MG TABLET (FP) PO SCH (21:04)
[2019-04-16] MEDS: MELATONIN 5 MG TABLETS PO PRN (21:05)
[2019-04-16] MEDS: traZODone HCL 100 MG TABLET (FP) PO SCH (21:05)
[2019-04-16] MEDS: DIPHENOXYLATE 2.5/ATROPINE.025 1 COMBO TABLET PO PRN (21:07)
[2019-04-17] MEDS ORDERED: METHADONE HCL 10 MG TABLET ONE (04:05)
[2019-04-17] MEDS ORDERED: METHADONE HCL 40 MG DISPERSABLE TABLET ONE (04:06)
[2019-04-17] MEDS ORDERED: METHADONE HCL 10 MG TABLET PO SCH (06:00)
[2019-04-17] MEDS: DIPHENOXYLATE 2.5/ATROPINE.025 1 COMBO TABLET PO PRN ×2 (07:49→20:07)
[2019-04-17] MEDS: METHADONE 40 MG, METHADONE 20 MG PO SCH (08:24)
[2019-04-17] MEDS: HYDROCORTISONE 1% TOPICAL CREAM 30 GM TUBE TP SCH ×2 (10:15→21:06)
[2019-04-17] MEDS: NICOTINE 14 MG/24 HOURS TOPICAL PATCH TD SCH (10:15)
[2019-04-17] MEDS: PRENATAL VITAMINS W/ FOLIC ACID TABLET (FP) PO SCH (10:15)
[2019-04-17] MEDS: METHYL SALICYLATE/MENTHOL OINT 30 GM TUBE TP SCH ×2 (10:16→21:06)
[2019-04-17 11:50] LABS: ALBUMIN 3.2 g/dl (3.4-5.0); BILIRUBIN,TOTAL 0.4 mg/dL (0.2-1); CALCIUM 8.9 mg/dL (8.5-10.1); CREATININE 0.9 mg/dL (0.55-1.3); TOT PROT 6.6 g/dl (6.4-8.2)
[2019-04-17] MEDS: THIAMINE HCL 100 MG TABLET (FP) PO SCH (21:06)
[2019-04-17] MEDS: MELATONIN 5 MG TABLETS PO PRN (21:06)
[2019-04-17] MEDS: traZODone HCL 100 MG TABLET (FP) PO SCH (21:06)
[2019-04-18] MEDS ORDERED: METHADONE HCL 10 MG TABLET ONE (05:46)
[2019-04-18] MEDS ORDERED: METHADONE HCL 40 MG DISPERSABLE TABLET ONE (05:46)
[2019-04-18] MEDS: METHADONE 40 MG, METHADONE 20 MG PO SCH (06:57)
[2019-04-18] MEDS: PRENATAL VITAMINS W/ FOLIC ACID TABLET (FP) PO SCH (10:01)
[2019-04-18] MEDS: METHYL SALICYLATE/MENTHOL OINT 30 GM TUBE TP SCH ×2 (10:01→21:06)
[2019-04-18] MEDS: HYDROCORTISONE 1% TOPICAL CREAM 30 GM TUBE TP SCH ×2 (10:01→21:06)
[2019-04-18] MEDS: NICOTINE 14 MG/24 HOURS TOPICAL PATCH TD SCH (10:01)
[2019-04-18] MEDS: DIPHENOXYLATE 2.5/ATROPINE.025 1 COMBO TABLET PO PRN (17:47)
[2019-04-18] MEDS: THIAMINE HCL 100 MG TABLET (FP) PO SCH (21:06)
[2019-04-18] MEDS: traZODone HCL 100 MG TABLET (FP) PO SCH (21:06)
[2019-04-18] MEDS: MELATONIN 5 MG TABLETS PO PRN (21:07)
--- NOTE | 2019-04-18 23:06 | PN ---
[facility] Progress Note Note: late entry: Saw pt this morning who reports he had no BM through the night but once early this morning. Pt was seen at the nursing station demanding for Lomotil even though he reported trend as written. Pt was educated on inappropriate use of anti-diarrheal medications. Pt reports better appetite and stated he is hungry and resdy for regular diet. Vital Signs (72 hours) Vital Signs - 24 hr 04/18/19 04/18/19 04/18/19 00:30 03:30 07:19 Temperature 97.9 F Pulse Rate 66 Respiratory 18 18 18 Rate Blood Pressure 97/53 L Alert o x 3 oob ambulating with steady gait 04/16/19 04/16/19 04/16/19 03:30 07:30 08:00 Temperature 97.6 F 97.5 F L Pulse Rate 61 66 Respiratory 18 16 18 Rate Blood Pressure 92/65 90/65 04/16/19 04/16/19 04/16/19 10:00 11:28 11:30 Temperature 98 F 98 F 97.4 F L Pulse Rate 60 60 51 L Respiratory 14 14 16 Rate Blood Pressure 88/62 L 88/62 L 91/55 L 04/16/19 04/17/19 04/17/19 15:35 00:30 03:30 Temperature 98.2 F 97.2 F L Pulse Rate 54 L 60 Respiratory 16 18 18 Rate Blood Pressure 89/61 L 88/56 L 04/17/19 04/17/19 04/17/19 07:30 07:35 10:00 Temperature 97.8 F 97.8 F Pulse Rate 66 66 64 Respiratory 16 16 Rate Blood Pressure 81/54 L 81/54 L 100/61 04/17/19 04/17/19 04/18/19 11:00 11:30 00:30 Temperature 97.6 F Pulse Rate 54 L 54 L Respiratory 16 16 18 Rate Blood Pressure 105/57 L 105/57 L 04/18/19 04/18/19 03:30 07:19 Temperature 97.9 F Pulse Rate 66 Respiratory 18 18 Rate Blood Pressure 97/53 L A/P Diarrhea resolving D/C BRAT Diet Restart Ensur Plus po tid Increase po fluids as tolerated.
[2019-04-19] MEDS ORDERED: METHADONE HCL 10 MG TABLET ONE (04:09)
[2019-04-19] MEDS ORDERED: METHADONE HCL 40 MG DISPERSABLE TABLET ONE (04:09)
[2019-04-19] MEDS: METHADONE 40 MG, METHADONE 20 MG PO SCH (06:35)
[2019-04-19] MEDS: PRENATAL VITAMINS W/ FOLIC ACID TABLET (FP) PO SCH (10:28)
[2019-04-19] MEDS: HYDROCORTISONE 1% TOPICAL CREAM 30 GM TUBE TP SCH ×2 (10:28→21:31)
[2019-04-19] MEDS: NICOTINE 14 MG/24 HOURS TOPICAL PATCH TD SCH (10:28)
[2019-04-19] MEDS: METHYL SALICYLATE/MENTHOL OINT 30 GM TUBE TP SCH ×2 (10:30→21:31)
[2019-04-19] MEDS: DIPHENOXYLATE 2.5/ATROPINE.025 1 COMBO TABLET PO PRN (10:33)
--- NOTE | 2019-04-19 11:41 | PN ---
S Progress Note (SOAP) Subjective: Pt is a 53 y/o male admitted to Rehab on 04/15/19 after detoxing on from Alcohol. pt with a hx opioid, alcohol dependence on methadone 60 mg po daily. Last dosed today on . Pt is currently being treated for diarrhea which has diminished form the past four days since coming to rehab. Pt had episodes of low BP in vital signs. Today pt reports dizziness,fatigue, headaches on/off, unresolved diarrhea but states frequency lessened past 48 hours from previous days. Last BM this morning and states it's watery and received Lomotil. Reporting Abdominal cramps with diarrhea. Pt also c/o pain to left shoulder and neck which he wants to be checked out today at the ER because was not ready to go to ER on stating he refused because he had diarrhea. Explained to patient we are here to take care of any situation as much as possible that presents and should allow us to help him. Objective: 04/19/19 11:43 Vital Signs - 24 hr 04/19/19 04/19/19 04/19/19 00:30 03:30 06:59 Temperature 97.4 F L Pulse Rate 71 Respiratory 18 18 18 Rate Blood Pressure 102/64 Active Medications Generic Name Dose Route Start Last Admin Trade Name Freq PRN Reason Stop Dose Admin Acetaminophen 650 mg 04/15/19 15:17 Tylenol - PO Q4H PRN FEVER Al Hydroxide/Mg Hydroxide 30 ml 04/15/19 15:17 Mylanta Oral Suspension - PO Q6H PRN DYSPEPSIA Albuterol Sulfate 2 puff 04/15/19 15:22 Ventolin Hfa Inhaler - IH Q4H PRN SHORT OF BREATH/WHEEZING Diphenoxylate HCl/Atropine 1 combo 04/16/19 18:10 04/19/19 10:33 Lomotil - PO 1 combo Q8H PRN Administration DIARRHEA Eucalyptus/Menthol/Phenol/Sorbitol 1 each 04/15/19 15:17 Cepastat Lozenge - MM Q4H PRN SORE THROAT Guaifenesin 10 ml 04/15/19 15:17 Robitussin - PO Q6H PRN COUGH Hydrocortisone 1 applic 04/16/19 12:30 04/19/19 10:28 Hytone 1% Cream - TP Not Given BID MARGAUX Ibuprofen 400 mg 04/15/19 15:17 Motrin - PO Q6H PRN Pain level 4-6 Magnesium Citrate 300 ml 04/15/19 15:17 Citroma - PO Q48H PRN CONSTIPATION Magnesium Hydroxide 30 ml 04/15/19 15:17 Milk Of Magnesia - PO DAILY PRN CONSTIPATION Melatonin 5 mg 04/15/19 22:00 04/18/19 21:07 Melatonin PO 5 mg HS PRN Administration INSOMNIA Methadone HCl 40 mg/ Methadone 60 mg 04/17/19 06:00 04/19/19 06:35 HCl 20 mg PO 60 mg DAILY@0600 MARGAUX Administration Methyl Salicylate 1 applic 04/16/19 12:30 04/19/19 10:30 Hiram-Saleem - TP Not Given BID MARGAUX Nicotine 14 mg 04/16/19 10:00 04/19/19 10:28 Nicoderm Patch - TD Not Given DAILY MARGAUX Nicotine Polacrilex 2 mg 04/15/19 15:17 Nicorette Gum - BC Q2H PRN NICOTINE REPLACEMENT RX Multivit/Folic Acid/Iron 1 tab 04/16/19 10:00 04/19/19 10:28 Vitamins (Sjr) - PO 1 tab DAILY MARGAUX Administration Pseudoephedrine/Triprolidine 1 combo 04/15/19 15:17 Actifed - PO TID PRN NASAL CONGESTION Thiamine HCl 100 mg 04/15/19 22:00 04/18/19 21:06 Vitamin B1 - PO 100 mg HS MARGAUX Administration Trazodone HCl 100 mg 04/15/19 22:00 04/18/19 21:06 Desyrel - PO 100 mg HS MARGAUX Administration Alert o x 3 oob ambulating with cane Heent:Normocephalic, Eomi, Hollie,hearing normal Neck:supple,no jvd, Cardiac:s1 s2, rrr Lungs;cta,abimael. Abdomen:soft,+bs,mild tenderness to palpate right lower abdomen and non- radiating Extremities:No ankle edema, cyanosis; Ambulates with cane, Full Active ROM except left knee with very slight limitation. slight pain on palpation left shoulder. Assessment: 04/19/19 11:44 Uncontrolled diarrhea Lo BP R/o dehydration Post Fall Plan: [facility] for [facility] via Ambulance. Pt may return to [facility] after clearance to continue with Rehab. Report given to Dr. Abhishek Rudolph who agreed to accept the patient.
[2019-04-19] MEDS: THIAMINE HCL 100 MG TABLET (FP) PO SCH (21:32)
[2019-04-19] MEDS: MELATONIN 5 MG TABLETS PO PRN (21:32)
[2019-04-19] MEDS: traZODone HCL 100 MG TABLET (FP) PO SCH (21:32)
[2019-04-20] MEDS ORDERED: METHADONE HCL 10 MG TABLET ONE (05:48)
[2019-04-20] MEDS ORDERED: METHADONE HCL 40 MG DISPERSABLE TABLET ONE (05:49)
[2019-04-20] MEDS: METHADONE 40 MG, METHADONE 20 MG PO SCH (06:44)
[2019-04-20] MEDS: NICOTINE 14 MG/24 HOURS TOPICAL PATCH TD SCH (09:25)
[2019-04-20] MEDS: PRENATAL VITAMINS W/ FOLIC ACID TABLET (FP) PO SCH (09:25)
[2019-04-20] MEDS: METHYL SALICYLATE/MENTHOL OINT 30 GM TUBE TP SCH ×2 (09:26→21:02)
[2019-04-20] MEDS: HYDROCORTISONE 1% TOPICAL CREAM 30 GM TUBE TP SCH ×2 (09:26→21:02)
[2019-04-20] MEDS: traZODone HCL 100 MG TABLET (FP) PO SCH (21:01)
[2019-04-20] MEDS: MELATONIN 5 MG TABLETS PO PRN (21:01)
[2019-04-20] MEDS: THIAMINE HCL 100 MG TABLET (FP) PO SCH (21:01)
[2019-04-21] MEDS ORDERED: METHADONE HCL 10 MG TABLET ONE (05:52)
[2019-04-21] MEDS ORDERED: METHADONE HCL 40 MG DISPERSABLE TABLET ONE (05:52)
[2019-04-21] MEDS: METHADONE 40 MG, METHADONE 20 MG PO SCH (06:31)
[2019-04-21] MEDS: PRENATAL VITAMINS W/ FOLIC ACID TABLET (FP) PO SCH (09:45)
[2019-04-21] MEDS: NICOTINE 14 MG/24 HOURS TOPICAL PATCH TD SCH (09:46)
[2019-04-21] MEDS: HYDROCORTISONE 1% TOPICAL CREAM 30 GM TUBE TP SCH ×2 (09:46→21:04)
[2019-04-21] MEDS: METHYL SALICYLATE/MENTHOL OINT 30 GM TUBE TP SCH ×2 (09:46→21:04)
[2019-04-21] MEDS: THIAMINE HCL 100 MG TABLET (FP) PO SCH (21:02)
[2019-04-21] MEDS: traZODone HCL 100 MG TABLET (FP) PO SCH (21:02)
[2019-04-21] MEDS: MELATONIN 5 MG TABLETS PO PRN (21:03)
[2019-04-22] MEDS ORDERED: METHADONE HCL 10 MG TABLET ONE (05:43)
[2019-04-22] MEDS ORDERED: METHADONE HCL 40 MG DISPERSABLE TABLET ONE (05:44)
[2019-04-22] MEDS: METHADONE 40 MG, METHADONE 20 MG PO SCH (06:19)
[2019-04-22 06:47] VITALS: BP 94/64; PULSE 68; TEMP 97.7
[2019-04-22] MEDS: HYDROCORTISONE 1% TOPICAL CREAM 30 GM TUBE TP SCH (11:10)
[2019-04-22] MEDS: PRENATAL VITAMINS W/ FOLIC ACID TABLET (FP) PO SCH (11:10)
[2019-04-22] MEDS: METHYL SALICYLATE/MENTHOL OINT 30 GM TUBE TP SCH (11:10)
[2019-04-22] MEDS: NICOTINE 14 MG/24 HOURS TOPICAL PATCH TD SCH (11:11)
--- NOTE | 2019-04-22 15:39 | DS ---
[facility] Rehab Discharge Summary - [facility] Rehab Discharge Summary Admission Date: 04/15/19 Discharge Date: 04/22/19 - History Present History: Alcohol dependence, MMTP Additional Comments: Pt is a 53 y/o male with a hx of YARELI admitted to rehab . Pt requests discharging today to follow up with [facility] where he plans to detox from his Methadone 60 mg because "has plan to move to [place] in April". Pt reports all GI symptoms have resolved- no nausea, vomiting or diarrhea since d/c from [facility] on 04/19/19 due to frequent BM. Pt denies any form of pain to all extremities or back, reporting "I'm fine now". Pertinent Past History: Hep C(resolved) PTSD Bipolar disorder - Discharge Physical Exam Vital Signs: Vital Signs Temperature 97.7 F 04/22/19 06:46 Pulse Rate 68 04/22/19 06:46 Respiratory Rate 18 04/22/19 06:46 Blood Pressure 94/64 04/22/19 06:46 O2 Sat by Pulse Oximetry (%) Alert o x 3 nad cardiac:s1 s2,rrr lungs;cta,abimael. Abdomen:soft,+bs,nt,flat Extremities/Skin:No edema,no cyanosis,Full ROM, mmm;Skin intact. P.S:Xray of left shoulder/hand result with no pathology CTScan of Head results with no evidence of acute intracranial pathology. Pertinent Admission Physical Exam Findings: Laboratory Tests 04/17/19 08:44 Sodium 139 Potassium 4.0 Chloride 103 Carbon Dioxide 31 Anion Gap 5 L BUN 14.0 Creatinine 0.9 Est GFR (CKD-EPI)AfAm 112.62 Est GFR (CKD-EPI)NonAf 97.17 Random Glucose 120 H Calcium 8.9 Total Bilirubin 0.4 AST 20 ALT 26 Alkaline Phosphatase 116 Total Protein 6.6 Albumin 3.2 L - Treatment Discharge Condition: Discharge condition good Hospital Course: Rehabilitated safely and Responded well Accepted aftercare Referral - Medication Discharge Medications: Ambulatory Orders Naloxone HCl [Narcan] 4 mg NS ASDIR PRN #1 spray 04/14/19 Hydrocortisone 1 applic TP BID 04/16/19 - Medication-Assisted Treatment (MAT) Medication-Assisted Treatment (MAT): No - Discharge Instructions Diet, activity, other medical instructions: Diet:Regular Activity: oob, ad magdy Other medical instructions:follow up with primary care provider Follow up with CD aftercare at [facility] on [place], [place] and MMTP Program @ [place], [place] as recommended. - Diagnosis (1) Acute diarrhea Status: Acute (2) Dehydration Status: Acute (3) Nicotine dependence Status: Chronic Qualifiers: Nicotine product type: cigarettes Substance use status: uncomplicated Qualified Code(s): F17.210 - Nicotine dependence, cigarettes, uncomplicated (4) Opioid use disorder Status: Chronic (5) Alcohol dependence Status: Chronic Qualifiers: Substance use status: uncomplicated Qualified Code(s): F10.20 - Alcohol dependence, uncomplicated (6) Methadone maintenance therapy patient Status: Chronic (7) Hepatitis C Status: Resolved Qualifiers: Viral hepatitis chronicity: chronic Hepatic coma status: without hepatic coma Qualified Code(s): B18.2 - Chronic viral hepatitis C (8) Hx of fall Status: Chronic (9) Ambulates with cane Status: Chronic - Follow-up Referral Minutes to complete discharge: 25 - AMA Did Patient Leave Against Medical Advice: No Additional Comments: All test results for check up and clearance at [facility] given to patient in d/c package. Pt states he has own medications at home.
[2019-04-23] MEDS ORDERED: METHADONE 40 MG, METHADONE 20 MG PO SCH (06:00)
[2019-04-23] MEDS ORDERED: METHADONE HCL 40 MG DISPERSABLE TABLET PO SCH (06:00)
== END 2019-04-22 16:00 | disposition home or self-care (01) | DRG 772 ==
LOC: YASAS 14:08 → Y5N 14:09
PROVIDERS: ADMIT Neuromusculoskeletal Medicine & OMM; ATTEND Neuromusculoskeletal Medicine & OMM
PROC: HZ42ZZZ Group Counseling for Substance Abuse Treatment, Cognitive-Behavioral (ICD-10-PCS; principal; 2019-04-15)
DX: F10.20 Alcohol dependence, uncomplicated (principal); F14.20 Cocaine dependence, uncomplicated; F17.210 Nicotine dependence, cigarettes, uncomplicated; F43.10 Post-traumatic stress disorder, unspecified; F31.9 Bipolar disorder, unspecified; B18.2 Chronic viral hepatitis C; E86.0 Dehydration; I95.9 Hypotension, unspecified; R19.7 Diarrhea, unspecified; R10.9 Unspecified abdominal pain; M54.2 Cervicalgia; M25.512 Pain in left shoulder; W18.39XA Other fall on same level, initial encounter; Y93.89 Activity, other specified; Y92.231 Patient bathroom in hospital as the place of occurrence of the external cause; Z99.89 Dependence on other enabling machines and devices
CPT/HCPCS: 36415; 80053

== ENCOUNTER 2019-04-19 12:41 | Emergency (ER) | payer OTHER | END 2019-04-19 13:00 | disposition left against medical advice (07) | LOC: JER 12:41 | DX: Z53.21 Procedure and treatment not carried out due to patient leaving prior to being seen by health care provider (principal) | CPT/HCPCS: 99281-25 ==

== ENCOUNTER 2019-04-19 15:22 | Emergency (ER) | payer OTHER ==
[2019-04-19 15:58] VITALS: BMI 23.1
--- NOTE | 2019-04-19 16:45 | PDOC ---
History of Present Illness - General Chief Complaint: Injury Stated Complaint: FALL Time Seen by Provider: 04/19/19 16:40 Past History - Past Medical History Allergies/Adverse Reactions: Allergies Allergy/AdvReac Type Severity Reaction Status Date / Time Fish Containing Products Allergy Severe Hives Verified 04/19/19 16:00 Penicillins Allergy Severe Hives Verified 04/19/19 16:00 Home Medications: Ambulatory Orders Mirtazapine [Remeron -] 30 mg PO HS #30 05/12/15 Sertraline HCl [Zoloft -] 50 mg PO DAILY 03/31/19 Naloxone HCl [Narcan] 4 mg NS ASDIR PRN #1 spray 04/14/19 traZODone HCL [Trazodone HCl] 100 mg PO HS 04/15/19 Hydrocortisone 1 applic TP BID 04/16/19 Anemia: No Asthma: No Cardiac Disorders: No CVA: No COPD: No Diabetes: No GI Disorders: No Disorders: No HTN: No Hypercholesterolemia: No Kidney Stones: No Psychiatric Problems: No (etoh, methadone program.) Seizures: No Thyroid Disease: No - Surgical History Abdominal Surgery: No Appendectomy: No Cardiac Surgery: No Cholecystectomy: No Lung Surgery: No Neurologic Surgery: No Orthopedic Surgery: Yes (SX LEFT SHOULDER DUE TO FALL IN 2003) - Reproductive History Testicular Surgery: No - Suicide/Smoking/Psychosocial Hx Smoking History: Current every day smoker Have you smoked in the past 12 months: Yes Number of Cigarettes Smoked Daily: 20 Information on smoking cessation initiated: No 'Breaking Loose' booklet given: 04/10/19 Hx Alcohol Use: No Drug/Substance Use Hx: No Substance Use Type: Alcohol, Heroin Hx Substance Use Treatment: No Review of Systems - Review of Systems Able to Perform ROS?: Yes Comments:: 04/19/19 19:12 CONSTITUTIONAL: Absent: fever, chills, diaphoresis, generalized weakness, malaise, loss of appetite HEENT: Absent: rhinorrhea, nasal congestion, throat pain, throat swelling, difficulty swallowing, mouth swelling, ear pain, eye pain, visual Changes CARDIOVASCULAR: Absent: chest pain, loss of consciousness, palpitations, irregular heart rate, peripheral edema RESPIRATORY: Absent: cough, shortness of breath, dyspnea with exertion, orthopnea, wheezing, stridor, hemoptysis GASTROINTESTINAL: Absent: abdominal pain, abdominal distension, nausea, vomiting, diarrhea, constipation, melena, hematochezia GENITOURINARY: Absent: dysuria, frequency, urgency, hesitancy, hematuria, flank pain, genital pain MUSCULOSKELETAL: Absent: myalgia, arthralgia, joint swelling SKIN: Absent: rash, itching, pallor HEMATOLOGIC/IMMUNOLOGIC: Absent: easy bleeding, easy bruising, lymphadenopathy, frequent infections ENDOCRINE: Absent: unexplained weight gain, unexplained weight loss, heat intolerance, cold intolerance NEUROLOGIC: Absent: headache, focal weakness or paresthesias, dizziness, unsteady gait, seizure, mental status changes, bladder or bowel incontinence PSYCHIATRIC: Absent: anxiety, depression, suicidal or homicidal ideation, hallucinations. Is the patient limited [place]ese proficient: No *Physical Exam - Vital Signs Last Vital Signs Temp Pulse Resp BP Pulse Ox 98.5 F 76 16 90/47 L 100 04/19/19 15:55 04/19/19 15:55 04/19/19 15:55 04/19/19 15:55 04/19/19 15:55 - Physical Exam Comments: 04/19/19 19:12 GENERAL: Well developed, well nourished. Awake and alert. No acute distress. HEENT: Normocephalic, atraumatic. PERRLA, EOMI. No conjunctival pallor. Sclera are non- icteric. Moist mucous membranes. Oropharynx is clear. NECK: Supple. Full ROM. No JVD. Carotid pulses 2+ and symmetric, without bruits. No thyromegaly. No lymphadenopathy. CARDIOVASCULAR: Regular rate and rhythm. No murmurs, rubs, or gallops. Distal pulses are 2+ and symmetric. PULMONARY: No evidence of respiratory distress. Lungs clear to auscultation bilaterally. No wheezing, rales or rhonchi. ABDOMINAL: Soft. Non-tender. Non-distended. No rebound or guarding. No organomegaly. Normoactive bowel sounds. MUSCULOSKELETAL Normal range of motion at all joints. No bony deformities or tenderness. No CVA tenderness. EXTREMITIES: No cyanosis. No clubbing. No edema. No calf tenderness. SKIN: Warm and dry. Normal capillary refill. No rashes. No jaundice. NEUROLOGICAL: Alert, awake, appropriate. Cranial nerves 2-12 intact. No deficits to light touch and temperature in face, upper extremities and lower extremities. No motor deficits in the in face, upper extremities and lower extremities. Normoreflexic in the upper and lower extremities. Normal speech. Toes are down- going bilaterally. Gait is normal without ataxia. PSYCHIATRIC: Cooperative. Good eye contact. Appropriate mood and affect. Medical Decision Making - Medical Decision Making 04/19/19 19:10 Pt presents for evaluation after a mechanical trip and fall on Monday. He states he slipped going to the bathroom over at rehab and that he hit his head and L shoulder. He denies LOC at that time. He comes for clearance to go back to [facility]. He has no complaints at this time. A/P: evaluation after a fall On exam pt with no pain to the L shoulder or hand Head CT is negative at this time for acute pathology Pt has no complaints Stable for DC back to rehab I discussed the physical exam findings, ancillary test results and final diagnoses with the patient. I answered all of the patient's questions. The patient was satisfied with the care received and felt comfortable with the discharge plan and treatment plan. The Patient agrees to follow up with the primary care physician/specialist within 24-72 hours. Return precautions were given. *DC/Admit/Observation/Transfer Diagnosis at time of Disposition: Fall Qualifiers: Encounter type: initial encounter Qualified Code(s): W19.XXXA - Unspecified fall, initial encounter - Discharge Dispostion Disposition: HOME Condition at time of disposition: Stable Decision to Admit order: No - Referrals Referrals: Andrew Adan DO [Staff Physician] - - Patient Instructions Additional Instructions: You were evaluated after your fall today Your CT scan was normal and your x-rays did not show a fracture Return to the ER for any new or worsening symptoms - Post Discharge Activity
[2019-04-20 07:45] VITALS: BP 102/61; PULSE 66; TEMP 98
== END 2019-04-19 21:01 | disposition home or self-care (01) ==
LOC: JER 15:22
DX: Z04.3 Encounter for examination and observation following other accident (principal); W01.0XXA Fall on same level from slipping, tripping and stumbling without subsequent striking against object, initial encounter; Y93.89 Activity, other specified; Y92.231 Patient bathroom in hospital as the place of occurrence of the external cause; Y99.8 Other external cause status; F10.10 Alcohol abuse, uncomplicated; F11.10 Opioid abuse, uncomplicated; F17.210 Nicotine dependence, cigarettes, uncomplicated; Z88.0 Allergy status to penicillin; Z91.013 Allergy to seafood
CPT/HCPCS: 70450-TC; 73030-TC-LT-FY; 73130-TC-LT-FY; 99283-25